=== PATIENT | male | born 1970 | race African-American/Black ===

== ENCOUNTER → 2020-04-17 | Outpatient (CLI) | payer OTHER ==
--- NOTE | 2020-04-17 17:22 | DIREP ---
PROCEDURE:XRAY KNEE 2 VWS-LT COMPARISON:None. INDICATIONS:HISTORY AND PHYSICAL EVALUATION, knee pain FINDINGS: BONES:Mild hypertrophic spurring is seen of lateral compartment. JOINTS:Normal. SOFT TISSUES:Normal. OTHER:No additional findings. CONCLUSION:There are mild degenerative changes in the lateral compartment. Dictated by: Henrry Noe M.D. on 04/17/2020 at 05:20 PM
== END | disposition home or self-care (01) ==
LOC: RAD 14:35
PROVIDERS: ATTEND Registered Nurse
DX: Z00.00 Encounter for general adult medical examination without abnormal findings (principal); M17.12 Unilateral primary osteoarthritis, left knee
CPT/HCPCS: 73560-LT